=== PATIENT | male | born 1975 | race Caucasian/White ===

== ENCOUNTER 2016-08-30 07:41 | Emergency (ER) | payer OTHER ==
[2016-08-30 08:37] LABS: BASO # 0.1 10_X3_uL (0.0-0.1); BASO % 0.6 % (0.2-1.2); EOS # 0.2 10_X3_uL (0.0-0.5); EOS % 2.1 % (0.8-7.0); GRAN # 4.5 10_X3_uL (1.8-5.4); GRAN % 57.8 % (34.0-67.9); HEMATOCRIT 45.8 % (40-51); HEMOGLOBIN 16.1 g/dL (13.7-17.5); LYMPH # 1.9 10_X3_uL (1.3-3.6); LYMPH % 23.9 % (21.8-53.1); MEAN CORPUSCULAR HEMOGLOBIN 29.2 pg (27.0-33.0); MEAN CORPUSCULAR HGB CONC 35.2 g/dL (32.0-36.0); MEAN PLATELET VOLUME 9.8 fl (7.5-11.5); MONO # 1.2 10_X3_uL (0.3-0.8); MONO % 15.6 % (5.3-12.2); PLATELET COUNT 324 x10_3/uL (163-337); RED BLOOD COUNT 5.52 x10_6/uL (4.6-6.1); RED CELL DISTRIBUTION WIDTH 16.1 % (11.6-14.4); WHITE BLOOD COUNT 7.8 x10_3/uL (4.2-9.1)
[2016-08-30 09:00] LABS: INR 1.1 (0.9-1.1); PARTIAL THROMBOPLASTIN TIME 24.1 SECONDS (21.3-29.3); PROTHROMBIN TIME (PATIENT) 11.8 SECONDS (9.9-11.1)
[2016-08-30 09:02] LABS: ALKALINE PHOSPHATASE 183 U/L (50-136); AMYLASE 22 U/L (15.62-74.58); AST/SGOT 550 U/L (6.66-35.34); BILIRUBIN,TOTAL 10.42 mg/dL (0.0-1.0); BLOOD UREA NITROGEN 8 mg/dL (7-18); CALCIUM 9.3 mg/dL (8.7-10.7); CARBON DIOXIDE 27 mmol/L (21-32); CREATININE 0.7 mg/dL (0.6-1.3); GLUCOSE,RANDOM 94 mg/dL (70-99); LIPASE 39 U/L (6.75-60.75); MAGNESIUM 2.4 mg/dL (1.8-2.4); POTASSIUM 3.4 mmol/L (3.5-5.1); SODIUM 142 mmol/L (136-145); TOTAL PROTEIN 7.1 gm/dL (6.4-8.2)
[2016-08-30 09:14] LABS: ALT/SGPT 1115 U/L (7.53-40.17)
[2016-09-01 12:42] LABS: HBS AG SCREEN Reactive (NR); HBSAG CONFIRM BY NEUTRALIZATIO Reactive (NR); HCV Non Reactive (NR)
== END 2016-08-30 12:16 ==
LOC: ER 07:41
PROVIDERS: Emergency Medicine
DX: R17 Unspecified jaundice (principal); K74.60 Unspecified cirrhosis of liver; F39 Unspecified mood [affective] disorder; F41.9 Anxiety disorder, unspecified; R11.0 Nausea; Z88.0 Allergy status to penicillin; Z79.899 Other long term (current) drug therapy
CPT/HCPCS: 36415; 71250; 80053; 80074; 82150; 83690; 83735; 85025; 85610; 85730; 99070; 99284-25